=== PATIENT | female | born 1970 | race Asian ===

== ENCOUNTER 2020-09-14 17:34 | Emergency (ER) | payer BC ==
[~2020-09-14] VITALS: Ht 170.2 cm; Wt 59.0 kg
--- NOTE | 2020-09-14 18:59 | NUR ---
Naman taped injured toe to 4th digit and placed pt's right foot in med/surg shoe.
--- NOTE | 2020-09-14 19:15 | NUR ---
Patient discharged to home in stable condition. Written and verbal after care instructions given. Patient verbalizes understanding of instructions. Stressed follow up or return to ER for worsening s/s.
[2020-09-14 19:16] VITALS: BP 128/51
== END 2020-09-14 19:16 | disposition home or self-care (01) ==
LOC: ER 17:36
DX: S92.511A Displaced fracture of proximal phalanx of right lesser toe(s), initial encounter for closed fracture (principal); X58.XXXA Exposure to other specified factors, initial encounter; Y92.89 Other specified places as the place of occurrence of the external cause; Y99.8 Other external cause status
CPT/HCPCS: 73630; A4663